=== PATIENT | female | born 1965 | race African-American/Black ===

== ENCOUNTER 2023-11-15 17:29 | Inpatient (IN) | payer OTHER, MEDICAID ==
[~2023-11-15] VITALS: Ht 165.1 cm; Wt 94.8 kg
[2023-11-15 17:41] VITALS: BP_SYST 160; PULSE 78; RESP 18; TEMP 98.5; O2SAT 98
[2023-11-15 18:45] LABS: INR 1.1 (0.8-1.2); PROTHROMBIN TIME 11.3 SECS (9.5-12.5)
[2023-11-15 18:46] LABS: ALANINE AMINOTRANSFERASE 17 U/L (12-78); ALBUMIN 4.1 g/dL (3.4-4.8); ANION GAP 13 (5-15); ASPARTATE AMINOTRANSFERASE 22 U/L (10-37); CALCIUM 9.4 mg/dL (8.4-11.0); CARBON DIOXIDE 27 mmol/L (23-29); CHLORIDE 100 mmol/L (98-107); CREATININE 1.48 mg/dL (0.55-1.30); GFR AFRICAN AMERICAN 46 mL/min (>90); GFR NON AFRICAN-AMERICAN 38 mL/min (>90); GLUCOSE 115 mg/dL (74-106); POTASSIUM 3.9 mmol/L (3.5-5.1); SODIUM SERUM 140 mmol/L (136-145); TOTAL BILIRUBIN 0.4 mg/dL (0.0-1.0); TOTAL PROTEIN, SERUM 8.2 g/dL (6.4-8.3); UREA NITROGEN, BLOOD 20 mg/dL (8-21)
[2023-11-15 18:47] LABS: BASOPHILS % (AUTO) 0.2 % (0.0-2.0); EOSINOPHILS # (AUTO) 0.2 K/uL (0.0-0.4); HEMATOCRIT 43.4 % (36-48); HEMOGLOBIN 14.3 g/dL (12.0-16.0); LYMPHOCYTES # (AUTO) 2.2 K/uL (1.0-5.5); LYMPHOCYTES % (AUTO) 33.7 % (20.5-51.5); MEAN CORPUSCULAR HEMOGLOBIN 28 pg (27-31); MEAN CORPUSCULAR HGB CONC 33 % (32-36); MEAN CORPUSCULAR VOLUME 85 fL (79.0-98.0); MONOCYTES # (AUTO) 0.8 K/uL (0.0-1.0); MONOCYTES % (AUTO) 11.9 % (1.7-9.3); NEUTROPHILS # (AUTO) 3.4 K/uL (1.8-7.7); NEUTROPHILS % (AUTO) 51.2 % (40.0-70.0); PLATELET COUNT (AUTO) 213 K/uL (130-430); RED CELL DISTRIBUTION WIDTH 14.8 % (9.0-15.0); WHITE BLOOD COUNT (AUTO) 6.6 K/uL (4.8-10.8)
[2023-11-15 18:48] LABS: BILIRUBIN,DIRECT 0.1 mg/dL (0.0-0.3)
[2023-11-15] MEDS: NACL 0.9% 1,000 ML IV ONE ×2 (21:35→23:19)
[2023-11-15] MEDS: clonazePAM 0.5 MG TABLET PO ONE (22:00)
[2023-11-15 22:01] LABS: BILIRUBIN,URINE NEGATIVE (NEGATIVE); BLOOD, URINE NEGATIVE (NEGATIVE); CLARITY/URINE CLEAR (CLEAR); GLUCOSE,URINE TRACE (NEGATIVE); KETONES,URINE TRACE (NEGATIVE); LEUKOCYTE ESTERASE ,URINE TRACE (NEGATIVE); NITRITE, URINE NEGATIVE (NEGATIVE); PROTEIN URINE NEGATIVE (NEGATIVE); UROBILINOGEN,URINE 0.2 (0.2-1.0)
[2023-11-15 22:09] LABS: COLOR,URINE AMBER (YELLOW)
[2023-11-15] MEDS: cefTRIAXone 1 GM IVPB PREMIX 50 ML IV ONE (22:09)
[2023-11-15 22:10] LABS: BACTERIA,URINE RARE /HPF (None Seen); MUCUS,URINE None Seen /LPF (None Seen); RBC,URINE NONE SEEN /HPF (0-3)
[2023-11-15] MEDS ORDERED: ACET325C6 PO (23:00)
[2023-11-15] MEDS ORDERED: AMAN100C18 PO (23:00)
[2023-11-15] MEDS ORDERED: MELA3CAP2 PO (23:00)
[2023-11-15] MEDS ORDERED: CARB1TAB10 PO (23:00)
[2023-11-15] MEDS ORDERED: TEMA7.5C2 PO (23:00)
[2023-11-15] MEDS ORDERED: MIRT-145 PO (23:00)
[2023-11-15] MEDS ORDERED: BUPR-120 PO (23:00)
[2023-11-15] MEDS ORDERED: RIVA20TA PO (23:00)
[2023-11-15] MEDS ORDERED: AMLO5TAB92 PO (23:00)
[2023-11-15] MEDS ORDERED: CLON0.5T2 PO (23:01)
[2023-11-15] MEDS ORDERED: FAMO-295 PO (23:01)
[2023-11-15] MEDS ORDERED: GABA300T25 PO (23:01)
[2023-11-15] MEDS ORDERED: ENTA200T3 PO (23:01)
[2023-11-15] MEDS ORDERED: ESCI20TA PO (23:01)
[2023-11-15] MEDS ORDERED: FURO-150 PO (23:01)
[2023-11-16] MEDS: LORazepam 2 MG/ML VIAL IVP ONE ×2 (05:34→12:00)
[2023-11-16 06:48] LABS: BASOPHILS % (AUTO) 0.5 % (0.0-2.0); EOSINOPHILS # (AUTO) 0.1 K/uL (0.0-0.4); EOSINOPHILS % (AUTO) 2.8 % (0.0-4.0); HEMATOCRIT 39.1 % (36-48); HEMOGLOBIN 12.8 g/dL (12.0-16.0); LYMPHOCYTES # (AUTO) 1.7 K/uL (1.0-5.5); LYMPHOCYTES % (AUTO) 38.3 % (20.5-51.5); MEAN CORPUSCULAR HEMOGLOBIN 28 pg (27-31); MEAN CORPUSCULAR HGB CONC 33 % (32-36); MEAN CORPUSCULAR VOLUME 86 fL (79.0-98.0); MONOCYTES # (AUTO) 0.5 K/uL (0.0-1.0); MONOCYTES % (AUTO) 12.3 % (1.7-9.3); NEUTROPHILS # (AUTO) 2.1 K/uL (1.8-7.7); NEUTROPHILS % (AUTO) 46.1 % (40.0-70.0); PLATELET COUNT (AUTO) 197 K/uL (130-430); RED BLOOD CELL COUNT(AUTO) 4.57 MIL/uL (4.2-6.2); RED CELL DISTRIBUTION WIDTH 14.9 % (9.0-15.0); WHITE BLOOD COUNT (AUTO) 4.5 K/uL (4.8-10.8)
[2023-11-16 07:05] LABS: CALCIUM 8.9 mg/dL (8.4-11.0); CREATININE 1.38 mg/dL (0.55-1.30); POTASSIUM 3.7 mmol/L (3.5-5.1)
[2023-11-16 08:20] VITALS: BP_SYST 136; PULSE 82; RESP 18; TEMP 98.5; O2SAT 96
[2023-11-16 08:30] VITALS: BP_SYST 113; PULSE 82; RESP 18; TEMP 98.6
[2023-11-16] MEDS: clonazePAM 0.5 MG TABLET PO SCH ×2 (09:08→17:00)
[2023-11-16] MEDS: LORazepam 2 MG/ML VIAL IVP PRN (09:58)
[2023-11-16] MEDS ORDERED: MORPHINE 2 MG/ML INJ. SYRINGE IVP PRN (11:30)
[2023-11-16] MEDS ORDERED: ENOXAPARIN SODIUM 40 MG/0.4 ML SYRINGE SUBCUT SCH (11:30)
[2023-11-16] MEDS ORDERED: clonazePAM 0.5 MG TABLET PO SCH (11:30)
[2023-11-16] MEDS ORDERED: POTASSIUM CHLORIDE 40 MEQ, LIDOCAINE JECT 2% PF 100 MG 50 MG in NS 250 ML IV PRN (11:30)
[2023-11-16] MEDS ORDERED: MORPHINE 4 MG INJ. 4 MG/ML VIAL IVP PRN (11:30)
[2023-11-16] MEDS ORDERED: MAGNESIUM SULFATE 50 ML IV PRN (11:30)
[2023-11-16] MEDS ORDERED: NALOXONE HCL 0.4 MG/ML AMP (NARCAN) IVP PRN (11:30)
[2023-11-16] MEDS ORDERED: ONDANSETRON HCL 4 MG/2 ML VIAL IVP PRN (11:30)
[2023-11-16 11:47] VITALS: O2SAT 96
[2023-11-16] MEDS: GABAPENTIN 300 MG CAPSULE PO ONE (12:15)
[2023-11-16 12:20] LABS: THYROID STIMULATING HORMONE 1.87 uIu/mL (0.34-4.82)
[2023-11-16] MEDS: ENTACAPONE 200 MG TAB PO ONE (12:45)
[2023-11-16 12:55] VITALS: BP_SYST 131; PULSE 89; RESP 17; TEMP 98.7; O2SAT 98
[2023-11-16] MEDS ORDERED: clonazePAM 0.5 MG TABLET PO PRN (14:15)
[2023-11-16] MEDS: buPROPion HCL 150 MG XL TAB PO ONE (14:38)
[2023-11-16] MEDS: FAMOTIDINE 20 MG TABLET PO ONE (14:38)
[2023-11-16] MEDS: CARBIDOPA/LEVODOPA 25/100 MG TABLET PO ONE (14:38)
[2023-11-16] MEDS: amLODIPine BESYLATE 5 MG TABLET PO ONE (14:39)
[2023-11-16] MEDS: GABAPENTIN 300 MG CAPSULE PO SCH (14:39)
[2023-11-16 16:14] VITALS: BP_SYST 134; PULSE 84; RESP 18; TEMP 98.6; O2SAT 97
[2023-11-16] MEDS: CARBIDOPA/LEVODOPA 25/100 MG TABLET PO SCH (17:00)
[2023-11-16] MEDS: ENTACAPONE 200 MG TAB PO SCH (17:00)
[2023-11-16] MEDS: FUROSEMIDE 20 MG TABLET PO ONE (17:11)
[2023-11-16] MEDS: RIVAROXABAN 10 MG TABLET PO ONE (17:11)
[2023-11-16 20:00] VITALS: O2SAT 98
[2023-11-16] MEDS: CITALOPRAM HYDROBROMIDE 20 MG TABLET PO SCH (20:36)
[2023-11-16] MEDS: MELATONIN 3 MG TABLET PO SCH (20:36)
[2023-11-16] MEDS: TEMAZEPAM 7.5 MG CAPSULE PO SCH (20:37)
[2023-11-16] MEDS: cefTRIAXone 1 GM IVPB PREMIX 50 ML IV SCH (20:38)
[2023-11-16] MEDS: MIRTAZAPINE 15 MG TABLET PO SCH (20:38)
[2023-11-16] MEDS ORDERED: cefTRIAXone 1 GM VIAL IV SCH (21:00)
[2023-11-17 00:15] LABS: BARBITURATE, URINE NEGATIVE (NEG <=200); BENZODIAZEPINE, URINE POSITIVE (NEG <=150); CANNABINOID, URINE NEGATIVE (NEG <=50); COCAINE, URINE NEGATIVE (NEG <=150); METHAMPHETAMINES SCREEN,URINE NEGATIVE (NEG <=500); OPIATE, URINE NEGATIVE (NEG <=100); PHENCYCLIDINE SCREEN,URINE NEGATIVE (NEG <=25); UR TRICYCLIC ANTIDEPRESSANTS NEGATIVE (NEG <=300); URINE AMPHETAMINE NEGATIVE (NEG <=500); URINE METHADONE NEGATIVE (NEG <=200); URINE OXYCODONE SCREEN NEGATIVE (NEG <=100)
[2023-11-17 00:41] VITALS: BP_SYST 109; PULSE 63; RESP 17; TEMP 97.1; O2SAT 96
[2023-11-17 08:15] VITALS: BP_SYST 165; PULSE 82; RESP 14; TEMP 97.4; O2SAT 96
[2023-11-17 09:30] VITALS: O2SAT 96
[2023-11-17] MEDS: FUROSEMIDE 20 MG TABLET PO SCH (09:54)
[2023-11-17] MEDS: amLODIPine BESYLATE 5 MG TABLET PO SCH ×2 (09:54→21:42)
[2023-11-17] MEDS: FAMOTIDINE 20 MG TABLET PO SCH (09:54)
[2023-11-17] MEDS: buPROPion HCL 150 MG XL TAB PO SCH (09:55)
[2023-11-17] MEDS: RIVAROXABAN 10 MG TABLET PO SCH (10:04)
[2023-11-17 10:08] LABS: BASOPHILS % (AUTO) 0.9 % (0.0-2.0); EOSINOPHILS # (AUTO) 0.2 K/uL (0.0-0.4); EOSINOPHILS % (AUTO) 5.3 % (0.0-4.0); HEMATOCRIT 45.1 % (36-48); HEMOGLOBIN 14.7 g/dL (12.0-16.0); LYMPHOCYTES # (AUTO) 1.2 K/uL (1.0-5.5); LYMPHOCYTES % (AUTO) 34.6 % (20.5-51.5); MEAN CORPUSCULAR HEMOGLOBIN 28 pg (27-31); MEAN CORPUSCULAR HGB CONC 33 % (32-36); MEAN CORPUSCULAR VOLUME 85 fL (79.0-98.0); MONOCYTES # (AUTO) 0.3 K/uL (0.0-1.0); MONOCYTES % (AUTO) 7.9 % (1.7-9.3); NEUTROPHILS # (AUTO) 1.8 K/uL (1.8-7.7); NEUTROPHILS % (AUTO) 51.3 % (40.0-70.0); PLATELET COUNT (AUTO) 206 K/uL (130-430); RED BLOOD CELL COUNT(AUTO) 5.29 MIL/uL (4.2-6.2); RED CELL DISTRIBUTION WIDTH 14.6 % (9.0-15.0); WHITE BLOOD COUNT (AUTO) 3.5 K/uL (4.8-10.8)
[2023-11-17 10:39] LABS: ALBUMIN 4.4 g/dL (3.4-4.8); CALCIUM 9.7 mg/dL (8.4-11.0); CREATININE 1.14 mg/dL (0.55-1.30); PHOSPHORUS 2.6 mg/dL (2.7-4.5); POTASSIUM 3.6 mmol/L (3.5-5.1); TOTAL BILIRUBIN 0.5 mg/dL (0.0-1.0)
[2023-11-17] MEDS: ACETAMINOPHEN 325 MG TABLET PO PRN (12:19)
[2023-11-17 13:20] VITALS: BP_SYST 156; PULSE 74; RESP 16; TEMP 97.2; O2SAT 97
[2023-11-17 16:19] VITALS: BP_SYST 155; PULSE 80; RESP 16; TEMP 97.8; O2SAT 97
[2023-11-17 20:00] VITALS: BP_SYST 153; PULSE 87; RESP 20; TEMP 97; O2SAT 100
[2023-11-17] MEDS: GABAPENTIN 100 MG CAPSULE PO SCH (21:41)
[2023-11-18 00:19] VITALS: BP_SYST 152; PULSE 91; RESP 18; TEMP 97.6; O2SAT 97
[2023-11-18] MEDS: NACL 0.9% 1,000 ML IV SCH (01:03)
[2023-11-18 08:00] VITALS: O2SAT 99
[2023-11-18 09:31] LABS: BASOPHILS % (AUTO) 0.5 % (0.0-2.0); EOSINOPHILS # (AUTO) 0.2 K/uL (0.0-0.4); HEMATOCRIT 43.6 % (36-48); HEMOGLOBIN 14.3 g/dL (12.0-16.0); LYMPHOCYTES % (AUTO) 23.4 % (20.5-51.5); MEAN CORPUSCULAR HEMOGLOBIN 28 pg (27-31); MEAN CORPUSCULAR HGB CONC 33 % (32-36); MEAN CORPUSCULAR VOLUME 85 fL (79.0-98.0); MONOCYTES # (AUTO) 0.3 K/uL (0.0-1.0); MONOCYTES % (AUTO) 6.9 % (1.7-9.3); NEUTROPHILS # (AUTO) 2.7 K/uL (1.8-7.7); NEUTROPHILS % (AUTO) 65.2 % (40.0-70.0); PLATELET COUNT (AUTO) 190 K/uL (130-430); RED BLOOD CELL COUNT(AUTO) 5.12 MIL/uL (4.2-6.2); RED CELL DISTRIBUTION WIDTH 14.6 % (9.0-15.0); WHITE BLOOD COUNT (AUTO) 4.1 K/uL (4.8-10.8)
[2023-11-18 09:42] LABS: ALBUMIN 3.8 g/dL (3.4-4.8); CALCIUM 9.1 mg/dL (8.4-11.0); CREATININE 1.24 mg/dL (0.55-1.30); PHOSPHORUS 3.1 mg/dL (2.7-4.5); POTASSIUM 3.4 mmol/L (3.5-5.1); TOTAL BILIRUBIN 0.4 mg/dL (0.0-1.0); TOTAL PROTEIN, SERUM 8.1 g/dL (6.4-8.3)
[2023-11-18 11:30] VITALS: BP_SYST 145; PULSE 84; RESP 18; TEMP 96.3; O2SAT 98
[2023-11-18 15:57] VITALS: BP_SYST 135; PULSE 85; RESP 20; TEMP 97.1; O2SAT 96
[2023-11-18 20:00] VITALS: BP_SYST 26; PULSE 85; RESP 18; TEMP 96.3; O2SAT 100
[2023-11-19] VITALS (7 sets, daily range): BP systolic 127–156; PULSE 71–89; RESP 16–18; TEMP 96.8–98.2; O2SAT 96–98
[2023-11-19 10:08] LABS: BASOPHILS % (AUTO) 0.8 % (0.0-2.0); EOSINOPHILS # (AUTO) 0.2 K/uL (0.0-0.4); EOSINOPHILS % (AUTO) 6.4 % (0.0-4.0); HEMATOCRIT 46.2 % (36-48); HEMOGLOBIN 15.5 g/dL (12.0-16.0); LYMPHOCYTES # (AUTO) 1.2 K/uL (1.0-5.5); LYMPHOCYTES % (AUTO) 36.2 % (20.5-51.5); MEAN CORPUSCULAR HEMOGLOBIN 29 pg (27-31); MEAN CORPUSCULAR HGB CONC 34 % (32-36); MEAN CORPUSCULAR VOLUME 85 fL (79.0-98.0); MONOCYTES # (AUTO) 0.3 K/uL (0.0-1.0); MONOCYTES % (AUTO) 8.3 % (1.7-9.3); NEUTROPHILS # (AUTO) 1.6 K/uL (1.8-7.7); PLATELET COUNT (AUTO) 207 K/uL (130-430); RED BLOOD CELL COUNT(AUTO) 5.45 MIL/uL (4.2-6.2); RED CELL DISTRIBUTION WIDTH 14.4 % (9.0-15.0); WHITE BLOOD COUNT (AUTO) 3.2 K/uL (4.8-10.8)
[2023-11-19 11:05] LABS: NEUTROPHILS % (AUTO) 48.3 % (40.0-70.0)
[2023-11-19 11:21] LABS: ALBUMIN 3.9 g/dL (3.4-4.8); CALCIUM 9.3 mg/dL (8.4-11.0); CREATININE 1.36 mg/dL (0.55-1.30); POTASSIUM 3.6 mmol/L (3.5-5.1); TOTAL BILIRUBIN 0.4 mg/dL (0.0-1.0); TOTAL PROTEIN, SERUM 8.2 g/dL (6.4-8.3)
[2023-11-19] MEDS: NACL 0.9% 1,000 ML IV SCH (14:00)
[2023-11-19] MEDS ORDERED: AMLO5TAB4 PO (15:51)
[2023-11-20] VITALS: BP_SYST 149; PULSE 68; RESP 18; TEMP 97.3; O2SAT 90
[2023-11-20 07:44] VITALS: O2SAT 97
[2023-11-20 08:00] VITALS: BP_SYST 144; PULSE 64; RESP 16; TEMP 97.3; O2SAT 97
[2023-11-20 08:08] LABS: BASOPHILS % (AUTO) 0.7 % (0.0-2.0); EOSINOPHILS # (AUTO) 0.1 K/uL (0.0-0.4); EOSINOPHILS % (AUTO) 4.9 % (0.0-4.0); HEMATOCRIT 41.5 % (36-48); HEMOGLOBIN 13.7 g/dL (12.0-16.0); LYMPHOCYTES # (AUTO) 1.1 K/uL (1.0-5.5); LYMPHOCYTES % (AUTO) 38.1 % (20.5-51.5); MEAN CORPUSCULAR HEMOGLOBIN 28 pg (27-31); MEAN CORPUSCULAR HGB CONC 33 % (32-36); MEAN CORPUSCULAR VOLUME 85 fL (79.0-98.0); MONOCYTES # (AUTO) 0.3 K/uL (0.0-1.0); MONOCYTES % (AUTO) 10.2 % (1.7-9.3); NEUTROPHILS # (AUTO) 1.4 K/uL (1.8-7.7); NEUTROPHILS % (AUTO) 46.1 % (40.0-70.0); PLATELET COUNT (AUTO) 202 K/uL (130-430); RED BLOOD CELL COUNT(AUTO) 4.88 MIL/uL (4.2-6.2); RED CELL DISTRIBUTION WIDTH 14.9 % (9.0-15.0)
[2023-11-20 08:43] LABS: ALBUMIN 3.6 g/dL (3.4-4.8); CREATININE 1.17 mg/dL (0.55-1.30); PHOSPHORUS 3.1 mg/dL (2.7-4.5); POTASSIUM 3.3 mmol/L (3.5-5.1); TOTAL BILIRUBIN 0.4 mg/dL (0.0-1.0); TOTAL PROTEIN, SERUM 7.5 g/dL (6.4-8.3)
[2023-11-20 09:51] VITALS: BP_SYST 144; PULSE 64; RESP 16; TEMP 97.7; O2SAT 97
[2023-11-20 12:00] VITALS: BP_SYST 140; PULSE 68; RESP 18; TEMP 98.8; O2SAT 99
[2023-11-20 16:00] VITALS: BP_SYST 142; PULSE 89; RESP 18; TEMP 98.4; O2SAT 96
== END 2023-11-20 12:30 | DRG 70 ==
LOC: SED 17:29 → SMU 22:00
DX: G93.41 Metabolic encephalopathy (principal); N17.0 Acute kidney failure with tubular necrosis; N39.0 Urinary tract infection, site not specified; I27.82 Chronic pulmonary embolism; E86.0 Dehydration; F32.9 Major depressive disorder, single episode, unspecified; I10 Essential (primary) hypertension; K21.9 Gastro-esophageal reflux disease without esophagitis; F41.9 Anxiety disorder, unspecified; G47.00 Insomnia, unspecified; G62.9 Polyneuropathy, unspecified; D64.9 Anemia, unspecified; Z86.718 Personal history of other venous thrombosis and embolism; Z79.899 Other long term (current) drug therapy; Z88.8 Allergy status to other drugs, medicaments and biological substances
CPT/HCPCS: 36415; 70450-TC; 71045; 76770; 80048; 80053; 80076; 80307; 81000; 81001; 81015; 82140; 83037; 83605; 83735; 83880; 84100; 84439; 84443; 84484; 85025; 85610; 85730; 87040; 87081; 87086; 93005; 96365; 97110-GP; 97116-GP; 97530-GP; 99285; J0696; J2060; J7030; J7040

== ENCOUNTER 2024-01-01 10:33 | Inpatient (IN) | payer OTHER ==
[~2024-01-01] VITALS: Ht 165.1 cm; Wt 86.2 kg
[~2024-01-01 10:33] MED LIST: ACET325C6 PO; AMAN100C18 PO; AMLO5TAB4 PO; AMLO5TAB92 PO; BUPR-120 PO; CARB1TAB10 PO; CLON0.5T2 PO; ENTA200T3 PO; ESCI20TA PO; FAMO-295 PO; FURO-150 PO; GABA300T25 PO; MELA3CAP2 PO; MIRT-145 PO; RIVA20TA PO; TEMA7.5C2 PO
[2024-01-01 10:48] VITALS: BP_SYST 154; PULSE 77; RESP 18; TEMP 98.3; O2SAT 98
[2024-01-01 11:04] LABS: ABG O2 SAT% ESTIMATE 95.5 % (94.0-98.0); BLOOD GAS BASE EXCESS 3.2 mmol/L (-2.0-3.0); BLOOD GAS HCO3 26.7 mmol/L (21.0-28.0); BLOOD GAS PCO2 37.3 mmHg (32.0-45.0); BLOOD GAS PH 7.473 (7.350-7.450); BLOOD GAS PO2 72.6 mmHg (83.0-108.0)
[2024-01-01 11:19] LABS: BASOPHILS % (AUTO) 1.1 % (0.0-2.0); EOSINOPHILS # (AUTO) 0.1 K/uL (0.0-0.4); EOSINOPHILS % (AUTO) 1.8 % (0.0-4.0); HEMATOCRIT 39.7 % (36-48); HEMOGLOBIN 13.2 g/dL (12.0-16.0); LYMPHOCYTES # (AUTO) 1.2 K/uL (1.0-5.5); LYMPHOCYTES % (AUTO) 29.8 % (20.5-51.5); MEAN CORPUSCULAR HEMOGLOBIN 28 pg (27-31); MEAN CORPUSCULAR HGB CONC 33 % (32-36); MEAN CORPUSCULAR VOLUME 84 fL (79.0-98.0); MONOCYTES # (AUTO) 0.3 K/uL (0.0-1.0); MONOCYTES % (AUTO) 8.3 % (1.7-9.3); NEUTROPHILS # (AUTO) 2.4 K/uL (1.8-7.7); PLATELET COUNT (AUTO) 286 K/uL (130-430); RED BLOOD CELL COUNT(AUTO) 4.73 MIL/uL (4.2-6.2); RED CELL DISTRIBUTION WIDTH 14.8 % (9.0-15.0)
[2024-01-01 11:29] LABS: INR 1.1 (0.8-1.2); PROTHROMBIN TIME 11.6 SECS (9.5-12.5)
[2024-01-01 11:31] LABS: ALBUMIN 4.2 g/dL (3.4-4.8); BILIRUBIN,DIRECT 0.2 mg/dL (0.0-0.3); CALCIUM 9.7 mg/dL (8.4-11.0); CREATININE 1.4 mg/dL (0.55-1.30); POTASSIUM 3.8 mmol/L (3.5-5.1); TOTAL BILIRUBIN 0.4 mg/dL (0.0-1.0); TOTAL PROTEIN, SERUM 9.2 g/dL (6.4-8.3)
[2024-01-01] MEDS ORDERED: NACL 0.9% 1,000 ML IV SCH (12:45)
[2024-01-01] MEDS: LORazepam 2 MG/ML VIAL IVP ONE (12:57)
[2024-01-01] MEDS ORDERED: LORazepam 2 MG/ML VIAL IVP PRN (13:45)
[2024-01-01] MEDS ORDERED: ONDANSETRON HCL 4 MG/2 ML VIAL IVP PRN (13:45)
[2024-01-01] MEDS ORDERED: MORPHINE 2 MG/ML INJ. SYRINGE IVP PRN (13:45)
[2024-01-01] MEDS ORDERED: MORPHINE 4 MG INJ. 4 MG/ML VIAL IVP PRN (13:45)
[2024-01-01] MEDS: NACL 0.9% 1,000 ML IV SCH (13:45)
[2024-01-01] MEDS ORDERED: POTASSIUM CHLORIDE 40 MEQ, LIDOCAINE JECT 2% PF 100 MG 50 MG in NS 250 ML IV PRN (13:45)
[2024-01-01] MEDS ORDERED: NALOXONE HCL 0.4 MG/ML AMP (NARCAN) IVP PRN (13:45)
[2024-01-01] MEDS ORDERED: MAGNESIUM SULFATE 50 ML IV PRN (13:45)
[2024-01-01] MEDS ORDERED: GABAPENTIN PO SCH (15:00)
[2024-01-01 16:01] VITALS: BP_SYST 119; PULSE 98; RESP 24; TEMP 98.1; O2SAT 100
[2024-01-01] MEDS ORDERED: LEVODOPA PO SCH (17:00)
[2024-01-01] MEDS ORDERED: CARBIDOPA PO SCH (17:00)
[2024-01-01] MEDS: ENTACAPONE 200 MG TAB PO SCH (17:37)
[2024-01-01] MEDS: CARBIDOPA/LEVODOPA 25/100 MG TABLET PO SCH (17:37)
[2024-01-01 17:55] LABS: FREE T4 (FREE THYROXINE) 1.2 ng/dl (0.8-1.5); THYROID STIMULATING HORMONE 1.75 uIu/mL (0.36-3.74)
[2024-01-01] MEDS ORDERED: CARB1TAB36 PO (17:55)
[2024-01-01 20:00] VITALS: BP_SYST 124; PULSE 78; RESP 18; TEMP 97.2; O2SAT 98
[2024-01-01] MEDS: MELATONIN 3 MG TABLET PO SCH (20:37)
[2024-01-01] MEDS: CITALOPRAM HYDROBROMIDE 20 MG TABLET PO SCH (20:37)
[2024-01-01] MEDS: CARBIDOPA/LEVODOPA 25/250 MG TABLET PO SCH (20:37)
[2024-01-01] MEDS: GABAPENTIN 300 MG CAPSULE PO SCH (20:37)
[2024-01-01] MEDS: amLODIPine BESYLATE 5 MG TABLET PO SCH (20:38)
[2024-01-01] MEDS ORDERED: ESCITALOPRAM OXALATE 10 MG TABLET PO SCH (21:00)
[2024-01-01] MEDS ORDERED: MELATONIN PO SCH (21:00)
[2024-01-01] MEDS: clonazePAM 0.5 MG TABLET PO PRN (21:28)
[2024-01-02] VITALS: BP_SYST 119; PULSE 75; RESP 18; TEMP 97.1; O2SAT 97
[2024-01-02 06:21] LABS: BILIRUBIN,URINE NEGATIVE (NEGATIVE); BLOOD, URINE NEGATIVE (NEGATIVE); COLOR,URINE YELLOW (YELLOW); GLUCOSE,URINE NEGATIVE (NEGATIVE); KETONES,URINE TRACE (NEGATIVE); LEUKOCYTE ESTERASE ,URINE TRACE (NEGATIVE); NITRITE, URINE NEGATIVE (NEGATIVE); PROTEIN URINE TRACE (NEGATIVE); UROBILINOGEN,URINE 0.2 (0.2-1.0)
[2024-01-02 06:37] LABS: CLARITY/URINE SLIGHTLY CLOUDY (CLEAR)
[2024-01-02 06:39] LABS: BACTERIA,URINE FEW /HPF (None Seen); RBC,URINE 0-3 /HPF (0-3)
[2024-01-02 06:48] LABS: BARBITURATE, URINE NEGATIVE (NEG <=200); BENZODIAZEPINE, URINE POSITIVE (NEG <=150); CANNABINOID, URINE NEGATIVE (NEG <=50); COCAINE, URINE NEGATIVE (NEG <=150); METHAMPHETAMINES SCREEN,URINE NEGATIVE (NEG <=500); OPIATE, URINE NEGATIVE (NEG <=100); PHENCYCLIDINE SCREEN,URINE NEGATIVE (NEG <=25); URINE AMPHETAMINE NEGATIVE (NEG <=500); URINE METHADONE NEGATIVE (NEG <=200); URINE OXYCODONE SCREEN NEGATIVE (NEG <=100)
[2024-01-02 06:49] LABS: UR TRICYCLIC ANTIDEPRESSANTS NEGATIVE (NEG <=300)
[2024-01-02 08:00] VITALS: BP_SYST 136; PULSE 94; RESP 18; TEMP 97.6; O2SAT 99
[2024-01-02 09:34] LABS: EOSINOPHILS # (AUTO) 0.1 K/uL (0.0-0.4); EOSINOPHILS % (AUTO) 2.2 % (0.0-4.0); HEMATOCRIT 41.5 % (36-48); HEMOGLOBIN 13.7 g/dL (12.0-16.0); LYMPHOCYTES # (AUTO) 1.5 K/uL (1.0-5.5); LYMPHOCYTES % (AUTO) 36.1 % (20.5-51.5); MEAN CORPUSCULAR HEMOGLOBIN 28 pg (27-31); MEAN CORPUSCULAR HGB CONC 33 % (32-36); MEAN CORPUSCULAR VOLUME 84 fL (79.0-98.0); MONOCYTES # (AUTO) 0.4 K/uL (0.0-1.0); NEUTROPHILS # (AUTO) 2.1 K/uL (1.8-7.7); NEUTROPHILS % (AUTO) 50.7 % (40.0-70.0); PLATELET COUNT (AUTO) 279 K/uL (130-430); RED BLOOD CELL COUNT(AUTO) 4.96 MIL/uL (4.2-6.2); RED CELL DISTRIBUTION WIDTH 14.4 % (9.0-15.0); WHITE BLOOD COUNT (AUTO) 4.2 K/uL (4.8-10.8)
[2024-01-02 09:41] LABS: CALCIUM 9.4 mg/dL (8.4-11.0); CREATININE 1.4 mg/dL (0.55-1.30); PHOSPHORUS 2.7 mg/dL (2.7-4.5); POTASSIUM 4.1 mmol/L (3.5-5.1); TOTAL BILIRUBIN 0.5 mg/dL (0.0-1.0); TOTAL PROTEIN, SERUM 8.6 g/dL (6.4-8.3)
[2024-01-02] MEDS: ENOXAPARIN SODIUM 40 MG/0.4 ML SYRINGE SUBCUT SCH (09:59)
[2024-01-02] MEDS: FAMOTIDINE 20 MG TABLET PO SCH (09:59)
[2024-01-02] MEDS: buPROPion HCL 150 MG XL TAB PO SCH (10:04)
[2024-01-02 12:50] VITALS: BP_SYST 122; PULSE 82; RESP 16; TEMP 97.4; O2SAT 97
[2024-01-02] MEDS: cefTRIAXone 1 GM in D5W 50 ML IV SCH (13:11)
[2024-01-02 16:21] VITALS: BP_SYST 130; PULSE 88; RESP 18; TEMP 97.5; O2SAT 98
[2024-01-02 20:12] VITALS: BP_SYST 142; PULSE 94; RESP 20; TEMP 97.5; O2SAT 97
[2024-01-02] MEDS: ZOLPIDEM TARTRATE 5 MG TABLET PO PRN (20:46)
[2024-01-03] VITALS (7 sets, daily range): BP systolic 111–178; PULSE 72–89; RESP 18–19; TEMP 97–98.3; O2SAT 66–100
[2024-01-03] MEDS ORDERED: hydrALAZINE HCL 10 MG TABLET PO PRN (08:30)
[2024-01-03] MEDS ORDERED: LORazepam 1 MG TABLET PO PRN (08:45)
[2024-01-03] MEDS ORDERED: LORazepam 1 MG TABLET PO ONE (08:50)
[2024-01-03] MEDS: LORazepam 2 MG/ML VIAL IM ONE (09:01)
[2024-01-03] MEDS ORDERED: LORazepam 2 MG/ML VIAL IM PRN (09:15)
[2024-01-03] MEDS: OLANZapine IntraMuscular 10 MG VIAL (FOR I.M. INJECTION ONLY) IM ONE (14:20)
[2024-01-03 15:52] LABS: BASOPHILS # (AUTO) 0.1 K/uL (0.0-0.2); BASOPHILS % (AUTO) 1.4 % (0.0-2.0); EOSINOPHILS % (AUTO) 0.9 % (0.0-4.0); HEMATOCRIT 37.1 % (36-48); HEMOGLOBIN 12.4 g/dL (12.0-16.0); LYMPHOCYTES # (AUTO) 1.3 K/uL (1.0-5.5); LYMPHOCYTES % (AUTO) 24.6 % (20.5-51.5); MEAN CORPUSCULAR HEMOGLOBIN 28 pg (27-31); MEAN CORPUSCULAR HGB CONC 33 % (32-36); MEAN CORPUSCULAR VOLUME 84 fL (79.0-98.0); MONOCYTES # (AUTO) 0.6 K/uL (0.0-1.0); MONOCYTES % (AUTO) 10.8 % (1.7-9.3); NEUTROPHILS # (AUTO) 3.3 K/uL (1.8-7.7); NEUTROPHILS % (AUTO) 62.3 % (40.0-70.0); PLATELET COUNT (AUTO) 223 K/uL (130-430); RED BLOOD CELL COUNT(AUTO) 4.42 MIL/uL (4.2-6.2); RED CELL DISTRIBUTION WIDTH 14.8 % (9.0-15.0); WHITE BLOOD COUNT (AUTO) 5.3 K/uL (4.8-10.8)
[2024-01-03 16:05] LABS: ALBUMIN 3.8 g/dL (3.4-4.8); CALCIUM 9.2 mg/dL (8.4-11.0); CREATININE 1.26 mg/dL (0.55-1.30); PHOSPHORUS 3.4 mg/dL (2.7-4.5); POTASSIUM 4.3 mmol/L (3.5-5.1); TOTAL BILIRUBIN 0.4 mg/dL (0.0-1.0); TOTAL PROTEIN, SERUM 7.8 g/dL (6.4-8.3)
[2024-01-03] MEDS: QUEtiapine FUMARATE 25 MG TABLET PO SCH (20:11)
[2024-01-04] VITALS (7 sets, daily range): BP systolic 111–125; PULSE 60–89; RESP 16–20; TEMP 97.4–98.6; O2SAT 95–100
[2024-01-04 06:58] LABS: BASOPHILS % (AUTO) 0.8 % (0.0-2.0); EOSINOPHILS # (AUTO) 0.1 K/uL (0.0-0.4); EOSINOPHILS % (AUTO) 3.2 % (0.0-4.0); HEMATOCRIT 37.3 % (36-48); HEMOGLOBIN 12.5 g/dL (12.0-16.0); LYMPHOCYTES # (AUTO) 1.2 K/uL (1.0-5.5); LYMPHOCYTES % (AUTO) 35.1 % (20.5-51.5); MEAN CORPUSCULAR HEMOGLOBIN 28 pg (27-31); MEAN CORPUSCULAR HGB CONC 34 % (32-36); MEAN CORPUSCULAR VOLUME 83 fL (79.0-98.0); MONOCYTES # (AUTO) 0.4 K/uL (0.0-1.0); MONOCYTES % (AUTO) 13.4 % (1.7-9.3); NEUTROPHILS # (AUTO) 1.6 K/uL (1.8-7.7); NEUTROPHILS % (AUTO) 47.5 % (40.0-70.0); PLATELET COUNT (AUTO) 209 K/uL (130-430); RED BLOOD CELL COUNT(AUTO) 4.48 MIL/uL (4.2-6.2); RED CELL DISTRIBUTION WIDTH 14.6 % (9.0-15.0); WHITE BLOOD COUNT (AUTO) 3.3 K/uL (4.8-10.8)
[2024-01-04 07:19] LABS: ALBUMIN 3.9 g/dL (3.4-4.8); CALCIUM 9.3 mg/dL (8.4-11.0); POTASSIUM 3.6 mmol/L (3.5-5.1); TOTAL BILIRUBIN 0.5 mg/dL (0.0-1.0); TOTAL PROTEIN, SERUM 8.2 g/dL (6.4-8.3)
[2024-01-04] MEDS: QUEtiapine FUMARATE 25 MG TABLET PO PRN (09:11)
[2024-01-04] MEDS: LORazepam 2 MG/ML VIAL IM PRN (12:15)
[2024-01-04] MEDS ORDERED: CARB1TAB36 PO (15:48)
[2024-01-04] MEDS ORDERED: SER25 PO ×2 (15:48)
[2024-01-04] MEDS ORDERED: ERTA1VIA3 INJ (15:48)
[2024-01-04] MEDS ORDERED: NEU300 PO (15:48)
[2024-01-04] MEDS: ERTAPENEM SODIUM 1 GM in NS 50 ML IV SCH (18:21)
[2024-01-04] MEDS: COMMUNICATION ORDER XX ONE (18:21)
[2024-01-05] VITALS (7 sets, daily range): BP systolic 110–137; PULSE 75–81; RESP 16–19; TEMP 97.7–98.6; O2SAT 96–98
[2024-01-05 06:38] LABS: BASOPHILS % (AUTO) 1.1 % (0.0-2.0); EOSINOPHILS # (AUTO) 0.1 K/uL (0.0-0.4); EOSINOPHILS % (AUTO) 2.9 % (0.0-4.0); HEMATOCRIT 37.5 % (36-48); HEMOGLOBIN 12.4 g/dL (12.0-16.0); LYMPHOCYTES # (AUTO) 1.4 K/uL (1.0-5.5); LYMPHOCYTES % (AUTO) 35.5 % (20.5-51.5); MEAN CORPUSCULAR HEMOGLOBIN 28 pg (27-31); MEAN CORPUSCULAR HGB CONC 33 % (32-36); MEAN CORPUSCULAR VOLUME 83 fL (79.0-98.0); MONOCYTES # (AUTO) 0.5 K/uL (0.0-1.0); MONOCYTES % (AUTO) 11.6 % (1.7-9.3); NEUTROPHILS # (AUTO) 1.9 K/uL (1.8-7.7); NEUTROPHILS % (AUTO) 48.9 % (40.0-70.0); PLATELET COUNT (AUTO) 204 K/uL (130-430)
[2024-01-05 07:52] LABS: CALCIUM 9.3 mg/dL (8.4-11.0); CREATININE 1.21 mg/dL (0.55-1.30); TOTAL BILIRUBIN 0.5 mg/dL (0.0-1.0); TOTAL PROTEIN, SERUM 8.2 g/dL (6.4-8.3)
[2024-01-05] MEDS: ERTAPENEM SODIUM 1 GM in NS 50 ML IV SCH (17:55)
== END 2024-01-05 21:30 | DRG 871 ==
LOC: SED 10:33 → SMU 12:44
DX: A41.9 Sepsis, unspecified organism (principal); G93.41 Metabolic encephalopathy; N17.0 Acute kidney failure with tubular necrosis; R44.3 Hallucinations, unspecified; N39.0 Urinary tract infection, site not specified; I27.82 Chronic pulmonary embolism; E86.0 Dehydration; I11.0 Hypertensive heart disease with heart failure; G20.A1 Parkinson's disease without dyskinesia, without mention of fluctuations; I50.9 Heart failure, unspecified; F32.9 Major depressive disorder, single episode, unspecified; K21.9 Gastro-esophageal reflux disease without esophagitis; F41.9 Anxiety disorder, unspecified; G47.00 Insomnia, unspecified; Z79.899 Other long term (current) drug therapy; Z88.8 Allergy status to other drugs, medicaments and biological substances
CPT/HCPCS: 36415; 36600; 70450-TC; 71045; 76770; 80048; 80053; 80076; 80307; 81000; 81001; 81015; 82140; 82803; 83037; 83605; 83735; 83880; 84100; 84439; 84443; 85025; 85610; 85730; 87040; 87081; 87086; 87186; 93005; 95816; 99285; J0696; J1335; J1650; J2060; J3490; J7060